=== PATIENT | male | born 1985 | race Hispanic/Latino ===

== ENCOUNTER → 2017-11-20 | Outpatient (CLI) | payer OTHER ==
--- NOTE | 2017-11-20 17:40 | Diagnostic Imaging Report ---
EXAMINATION: Scrotal ultrasound CLINICAL INDICATION: Persistent testicular pain. COMPARISON: None.. TECHNIQUE: Grayscale and color Doppler evaluation of the scrotum was performed in transverse and longitudinal planes. FINDINGS: The right testicle measures 3.4 x 2.3 x 2.9 cm. Normal echogenicity. Normal vascularity. There are no masses or calcifications.. The right epididymis measures 1.1 x 0.8 x 0.7 cm. No nodules or masses.. There is no evidence of right hydrocele or varicocele. There is normal arterial and venous flow to the right testicle, without evidence of torsion. The left testicle measures 3.5 x 2.2 x 2.8 cm. Normal echogenicity. Normal vascularity. No focal lesions. There are no masses or calcifications.. The left epididymis measures 1.3 x 1.0 x 0.8 cm. No nodules or masses.. There is no evidence of left hydrocele. A left varicocele is identified. There is normal arterial and venous flow to the left testicle without evidence of torsion. The scrotum has a normal appearance, without focal lesions. No evidence of inguinal hernia. Impression: 1. Normal bilateral testicular size and echogenicity. No focal lesions. Normal arterial and venous flow, without evidence of torsion. 2. Left varicocele. Signed by: Dr. Bernardo Schafer M.D. on 11/20/2017 5:36 PM
== END ==
LOC: US 16:51
PROVIDERS: ATTEND Family Medicine
DX: N50.812 Left testicular pain (principal); N50.811 Right testicular pain; I86.1 Scrotal varices
CPT/HCPCS: 76870; 93976